=== PATIENT | female | born 1945 | race Caucasian/White ===

== ENCOUNTER → 2020-06-08 | Outpatient (CLI) | payer MEDICARE ==
[~2020-06-08] MED LIST: ASPIR 8181 MG PO; AUGMENTIN 875-1 EACH PO; LORTAB 5-325 M1 EACH PO
== END ==
LOC: EXRD 13:18
DX: R94.6 Abnormal results of thyroid function studies (principal); E07.9 Disorder of thyroid, unspecified
CPT/HCPCS: 76536

== ENCOUNTER → 2021-09-02 | Outpatient (CLI) | payer MEDICARE | LOC: LAB 14:50 | DX: E04.2 Nontoxic multinodular goiter (principal) | CPT/HCPCS: 36415; 84439; 84443 ==

== ENCOUNTER → 2021-09-02 | Outpatient (CLI) | payer MEDICARE | LOC: EXRD 12:48 | DX: E04.2 Nontoxic multinodular goiter (principal) | CPT/HCPCS: 76536 ==